=== PATIENT | male | born 2000 | race Caucasian/White ===

== ENCOUNTER 2020-01-14 01:10 | Emergency (ER) | payer SELFPAY ==
--- NOTE | 2020-01-14 01:25 | EDM.PDOC ---
ED HPI GENERAL MEDICAL PROBLEM - General Chief Complaint: General Stated Complaint: "I guess I had a seizure" Time Seen by Provider: 01/14/20 01:24 Source of Information: Reports: Patient History Limitations: Reports: No Limitations - History of Present Illness INITIAL COMMENTS - FREE TEXT/NARRATIVE: Pranav is a 19 yr old male who is brought into the ED via [place] [facility] with concerns of seizure activity. Upon arrival of EMS Pranav was sitting up and not having any further activity. He has been alert and cooperative with EMS. States he doesn't remember having any seizures but was told from his girlfriend and friends he did. He states he was also told he had an asthma attack. He doesn't recall having any shortness of breath, wheezing, cough, difficult breathing. He admits he had been drinking tonight, roughly 4-6 beers and a couple shots of vodka. His girlfriend states he told her he wasn't feeling well and [place] had went [place] to the [place] at the [place]. She states he started breathing really fast as if he was hyperventilating. He did not have any inhaler's at the [place]. She states he then had jerking of his entire body that would last roughly 6 seconds. She admits this did happen multiple times. Denies any urinary incontinence, biting of his tongue. They then proceeded to call the ambulance. She admits his grandmother had stated he had an episode identical to this when he was drinking. He denies any prior history of seizure activity. States he has been healthy. Admits to history of depression and anxiety that was diagnosed when he was 15 years old. He admits he was seeing a counselor and was also to take medications, but he didn't. He states he had a terrible childhood that lead to his depression. He admits he is doing well with it and hasn't had any significant set backs. - Related Data Allergies Allergy/AdvReac Type Severity Reaction Status Date / Time No Known Allergies Allergy Verified 01/14/20 03:40 Home Meds: Home Meds . [Unable to Verify Home Med List] 01/14/20 [History] Past Medical History HEENT History: Reports: None Cardiovascular History: Reports: None Respiratory History: Reports: Asthma Gastrointestinal History: Reports: None Genitourinary History: Reports: None Musculoskeletal History: Reports: None Neurological History: Reports: None Psychiatric History: Reports: Anxiety, Depression Endocrine/Metabolic History: Reports: None - Past Surgical History Head Surgeries/Procedures: Reports: None HEENT Surgical History: Reports: None Cardiovascular Surgical History: Reports: None Respiratory Surgical History: Reports: None GI Surgical History: Reports: None Male Surgical History: Reports: None Endocrine Surgical History: Reports: None Neurological Surgical History: Reports: None Musculoskeletal Surgical History: Reports: None Social & Family History - Tobacco Use Smoking Status *Q: Current Every Day Smoker Tobacco Use Within Last Twelve Months: Cigarettes, Vaping - Alcohol Use Alcohol Use History: Yes Alcohol Use Frequency: Weekly - Recreational Drug Use Recreational Drug Use: No - Living Situation & Occupation Occupation: Employed ED ROS GENERAL - Review of Systems Review Of Systems: See Below Constitutional: Denies: Fever, Chills, Night Sweats HEENT: Denies: Eye Pain, Hearing Loss, Vision Change Respiratory: Denies: Shortness of Breath, Wheezing, Cough Cardiovascular: Denies: Chest Pain, Lightheadedness, Palpitations GI/Abdominal: Reports: No Symptoms : Reports: No Symptoms Musculoskeletal: Reports: No Symptoms Skin: Reports: No Symptoms Neurological: Denies: Numbness, Seizure (Denies any prior history of seizures), Difficulty Walking, Weakness, Change in Speech Psychiatric: Reports: Anxiety, Depression ED EXAM, GENERAL - Physical Exam Exam: See Below Exam Limited By: No Limitations General Appearance: Alert, WD/WN, No Apparent Distress Eye Exam: Bilateral Eye: EOMI, Normal Inspection, PERRL Ears: Normal External Exam, Normal Canal, Hearing Grossly Normal, Normal TMs Nose: Normal Inspection, Normal Mucosa, No Blood Throat/Mouth: Normal Inspection, Normal Lips, Normal Teeth, Normal Gums, Normal Oropharynx, Normal Voice, No Airway Compromise, Other (normal tongue) Head: Atraumatic, Normocephalic Neck: Normal Inspection, Supple, Non-Tender. No: Tender Lateral, Tender Midline Respiratory/Chest: No Respiratory Distress, Lungs Clear, Normal Breath Sounds, No Accessory Muscle Use, Chest Non-Tender. No: Decreased Breath Sounds, Rales, Rhonchi, Wheezing, Accessory Muscle Use, Retractions, Splinting Cardiovascular: Regular Rate, Rhythm, No Edema, No Murmur GI/Abdominal: Normal Bowel Sounds, Soft, Non-Tender, No Organomegaly, No Distention Extremities: Normal Inspection, Normal Range of Motion Neurological: Alert, Oriented, CN II-XII Intact, Normal Cognition, Normal Gait, No Motor/Sensory Deficits Psychiatric: Normal Affect, Normal Mood Skin Exam: Warm, Dry, Intact, Normal Color, Rash (ringworm noted to right flank area, currently being treated. ) Course - Vital Signs Last Recorded V/S: Last Vital Signs Temp 97.4 F 01/14/20 08:10 Pulse 84 01/14/20 08:10 Resp 14 01/14/20 08:10 BP 117/67 01/14/20 08:10 Pulse Ox 97 01/14/20 08:10 - Orders/Labs/Meds Orders: Active Orders 24 hr Category Date Time Status Neuro Check [RC] Q2HR Care 01/14/20 03:02 Active PROLACTIN [REF] Stat Lab 01/14/20 01:37 Received Sodium Chloride 0.9% [Normal Saline] 1,000 ml Med 01/14/20 03:15 Active IV ASDIRECTED Medication Orders Sodium Chloride (Normal Saline) 1,000 mls @ 150 mls/hr IV ASDIRECTED FRANCESCA Last Admin: 01/14/20 03:14 Dose: 150 mls/hr Documented by: SHAWNA Labs: Laboratory Tests 01/14/20 01/14/20 01/14/20 Range/Units 01:37 01:37 01:45 WBC 8.3 (5.0-10.0) 10^3/uL RBC 5.01 (4.50-6.00) 10^6/uL Hgb 15.2 (14.0-18.0) g/dL Hct 43.5 (40.0-54.0) % MCV 86.8 (82.0-94.0) fL MCH 30.3 (27.0-32.0) pg MCHC 34.9 (33.0-38.0) g/dL RDW Coeff of Aundrea 12.9 (11.0-15.0) % Plt Count 340 (150-400) 10^3/uL Neut % (Auto) 58.1 (35-85) % Lymph % (Auto) 29.9 (10-55) % Becker % (Auto) 9.6 (0-16) % Eos % (Auto) 2.2 (0-5) % Baso % (Auto) 0.2 (0-3) % Neut # (Auto) 4.83 (1.80-7.00) 10^3/uL Lymph # (Auto) 2.49 (1.00-4.80) 10^3/uL Becker # (Auto) 0.80 (0.00-0.80) 10^3/uL Eos # (Auto) 0.18 (0.00-0.45) 10^3/uL Baso # (Auto) 0.02 10^3/uL Sodium 142 (136-145) mEq/L Potassium 3.7 (3.5-5.0) mEq/L Chloride 104 (98-106) mEq/L Carbon Dioxide 24 (21-32) mmol/L BUN 12 (7-18) mg/dL Creatinine 1.0 (0.7-1.3) mg/dL Est Cr Clr Drug Dosing TNP Estimated GFR (MDRD) > 60 (>=60) mL/min Glucose 103 H (75-99) mg/dL Calcium 8.6 (8.4-10.1) mg/dL Creatine Kinase 133 (35-232) U/L Urine Color (YELLOW) Urine Appearance (CLEAR) Urine pH (4.5-8.0) Ur Specific [place] (1.003-1.020) Urine Protein (NEGATIVE) mg/dL Urine Glucose (UA) (NEGATIVE) mg/dL Urine Ketones (NEGATIVE) mg/dL Urine Occult Blood (NEGATIVE) Urine Nitrite (NEGATIVE) Urine Bilirubin (NEGATIVE) Urine Urobilinogen (0.2-1.0) EU/dL Ur Leukocyte Esterase (NEGATIVE) Urine RBC Urine WBC Urine Opiates Screen Negative (NEGATIVE) Ur Oxycodone Screen Negative (NEGATIVE) Urine Methadone Screen Negative (NEGATIVE) Ur Barbiturates Screen Negative (NEGATIVE) U Tricyclic Antidepress Negative (NEGATIVE) Ur Phencyclidine Scrn Negative (NEGATIVE) Ur Amphetamine Screen Negative (NEGATIVE) U Methamphetamines Scrn Negative (NEGATIVE) Urine MDMA Screen Negative (NEGATIVE) U Benzodiazepines Scrn Negative (NEGATIVE) Urine Cocaine Screen Negative (NEGATIVE) U Marijuana (THC) Screen Negative (NEGATIVE) Ethyl Alcohol 147 H (0-3) mg/dL 01/14/20 Range/Units 01:45 WBC (5.0-10.0) 10^3/uL RBC (4.50-6.00) 10^6/uL Hgb (14.0-18.0) g/dL Hct (40.0-54.0) % MCV (82.0-94.0) fL MCH (27.0-32.0) pg MCHC (33.0-38.0) g/dL RDW Coeff of Aundrea (11.0-15.0) % Plt Count (150-400) 10^3/uL Neut % (Auto) (35-85) % Lymph % (Auto) (10-55) % Becker % (Auto) (0-16) % Eos % (Auto) (0-5) % Baso % (Auto) (0-3) % Neut # (Auto) (1.80-7.00) 10^3/uL Lymph # (Auto) (1.00-4.80) 10^3/uL Becker # (Auto) (0.00-0.80) 10^3/uL Eos # (Auto) (0.00-0.45) 10^3/uL Baso # (Auto) 10^3/uL Sodium (136-145) mEq/L Potassium (3.5-5.0) mEq/L Chloride (98-106) mEq/L Carbon Dioxide (21-32) mmol/L BUN (7-18) mg/dL Creatinine (0.7-1.3) mg/dL Est Cr Clr Drug Dosing Estimated GFR (MDRD) (>=60) mL/min Glucose (75-99) mg/dL Calcium (8.4-10.1) mg/dL Creatine Kinase (35-232) U/L Urine Color Yellow (YELLOW) Urine Appearance Clear (CLEAR) Urine pH 6.0 (4.5-8.0) Ur Specific [place] 1.020 (1.003-1.020) Urine Protein Negative (NEGATIVE) mg/dL Urine Glucose (UA) Negative (NEGATIVE) mg/dL Urine Ketones Negative (NEGATIVE) mg/dL Urine Occult Blood Negative (NEGATIVE) Urine Nitrite Negative (NEGATIVE) Urine Bilirubin Negative (NEGATIVE) Urine Urobilinogen 0.2 (0.2-1.0) EU/dL Ur Leukocyte Esterase Negative (NEGATIVE) Urine RBC Not Reportable Urine WBC Not Reportable Urine Opiates Screen (NEGATIVE) Ur Oxycodone Screen (NEGATIVE) Urine Methadone Screen (NEGATIVE) Ur Barbiturates Screen (NEGATIVE) U Tricyclic Antidepress (NEGATIVE) Ur Phencyclidine Scrn (NEGATIVE) Ur Amphetamine Screen (NEGATIVE) U Methamphetamines Scrn (NEGATIVE) Urine MDMA Screen (NEGATIVE) U Benzodiazepines Scrn (NEGATIVE) Urine Cocaine Screen (NEGATIVE) U Marijuana (THC) Screen (NEGATIVE) Ethyl Alcohol (0-3) mg/dL Meds: Medications Generic Name Dose Route Start Last Admin Trade Name Freq PRN Reason Stop Dose Admin Sodium Chloride 1,000 mls @ 150 mls/hr 01/14/20 03:15 01/14/20 03:14 Normal Saline IV 150 mls/hr ASDIRECTED [facility] Administration - Re-Assessments/Exams Free Text/Narrative Re-Assessment/Exam: Laboratory work up is unremarkable. No sign of any seizure activity. No sign of asthma exacerbation. Discussed findings with Pranav. Will keep extended ER and closely monitor tonight, which he was in agreement. He was ambulatory and brought to the floor for observation. Departure - Departure Time of Disposition: 09:09 Disposition: Home, Self-Care 01 Clinical Impression: Seizure-like activity, Ringworm of body Alcohol intoxication Qualifiers: Complication of substance-induced condition: uncomplicated Qualified Code(s): F10.920 - Alcohol use, unspecified with intoxication, uncomplicated - Discharge Information Instructions: Seizure, Adult, [id number], Body Ringworm Forms: ED Department Discharge Additional Instructions: 1) Recommend following up with primary provider for recheck this week 2) Advise no driving until appointment d/t unknown status of seizure like activity 3) Refrain from alcohol use 4) If any symptoms arise or any concerns at all, advise returning to ED. Sepsis Event Note (ED) - Focused Exam Vital Signs: Vital Signs Temp Pulse Resp BP Pulse Ox 01/14/20 08:10 97.4 F 84 14 117/67 97 01/14/20 01:10 97.8 F 70 20 127/80 99 - Problem List & Annotations (1) Alcohol intoxication SNOMED Code(s): 32517087 Code(s): F10.929 - ALCOHOL USE, UNSPECIFIED WITH INTOXICATION, UNSPECIFIED Status: Acute Current Visit: Yes Qualifiers: Complication of substance-induced condition: uncomplicated Qualified Code(s): F10.920 - Alcohol use, unspecified with intoxication, uncomplicated (2) Ringworm of body SNOMED Code(s): 92481100 Code(s): B35.4 - TINEA CORPORIS Status: Acute Current Visit: Yes (3) Seizure-like activity SNOMED Code(s): 306953901 Code(s): R56.9 - UNSPECIFIED CONVULSIONS Status: Acute Current Visit: Yes - My Orders Last 24 Hours: My Active Orders 01/14/20 01:37 PROLACTIN [REF] Stat 01/14/20 03:02 Neuro Check [RC] Q2HR 01/14/20 03:15 Sodium Chloride 0.9% [Normal Saline] 1,000 ml IV ASDIRECTED - Assessment/Plan Last 24 Hours: My Active Orders 01/14/20 01:37 PROLACTIN [REF] Stat 01/14/20 03:02 Neuro Check [RC] Q2HR 01/14/20 03:15 Sodium Chloride 0.9% [Normal Saline] 1,000 ml IV ASDIRECTED Plan: Pranav had an uneventful night and will discharge home at this time. Recommend no driving until follow up with primary provider. Encourage to refrain from any alcohol.
[2020-01-14 01:59] LABS: CHLORIDE,CL 104 mEq/L (98-106); SODIUM,NA 142 mEq/L (136-145)
[2020-01-14] MEDS ORDERED: Sodium Chloride 0.9% 1,000 ML IV SCH (03:15)
== END 2020-01-14 10:00 | disposition home or self-care (01) ==
LOC: CC.ED 01:10
DX: R25.9 Unspecified abnormal involuntary movements (principal); B35.4 Tinea corporis; F10.120 Alcohol abuse with intoxication, uncomplicated; J45.909 Unspecified asthma, uncomplicated; F17.210 Nicotine dependence, cigarettes, uncomplicated; F17.290 Nicotine dependence, other tobacco product, uncomplicated
CPT/HCPCS: 36415; 80048; 80305-QW; 80307; 81001; 82550; 84146; 85025; 99284; J7030